=== PATIENT | male | born 1955 | race Caucasian/White ===

== ENCOUNTER 2019-05-07 22:49 | Inpatient (IN) | payer MEDICAID ==
[~2019-05-07] VITALS: Ht 193 cm; Wt 71.2 kg
[2019-05-08] MEDS ORDERED: MORPHINE SULFATE 4 MG/ML CPJ (NOT FOR IM USE) IV STA (00:08)
[2019-05-08] MEDS ORDERED: ONDANSETRON HCL 4MG/2ML INJ IV STA (00:08)
[2019-05-08] MEDS ORDERED: SODIUM CHLORIDE 0.9% 1000ML BAG (SEPSIS BOLUS) IV ONE (00:15)
[2019-05-08] MEDS ORDERED: PIPERACILLIN/TAZ 3.375G PREMIX 50 ML IV ONE (00:15)
[2019-05-08 02:37] LABS: BASOPHILS % 1.5 % (0.0-2.0); EOSINOPHILS % 5.6 % (0.0-5.0); HEMATOCRIT. 31.9 % (42.0-52.0); HEMOGLOBIN. 10.1 g/dL (14.0-18.0); LYMPHOCYTES % 21.6 % (20.0-50.0); MEAN CORPUSCULAR HEMOGLOBIN 23.2 pg (28.0-32.0); MEAN CORPUSCULAR VOLUME 73.3 fL (80.0-94.0); MEAN PLATELET VOLUME 7.7 fl (7.4-10.4); MONOCYTES % 9.4 % (2.0-8.0); NEUTROPHILS % 61.9 % (40.0-76.0); PLATELET 331 x1000/uL (130-400); RED BLOOD CELL COUNT 4.35 mill/uL (4.7-6.1); RED CELL DISTRIBUTION WIDTH 18.3 % (11.6-14.6)
[2019-05-08 02:44] LABS: CHLORIDE 110 mEq/L (98-107); INR 1.1; PROTHROMBIN TIME 11.4 sec (9.6-11.0)
[2019-05-08 02:49] LABS: ETHANOL BLOOD < 10 mg/dL
[2019-05-08] MEDS ORDERED: KETOROLAC 30MG/ML VIAL IV SCH (03:00)
[2019-05-08] MEDS ORDERED: POTASSIUM CHLORIDE 20MEQ TABLET SR PO SCH (03:00)
[2019-05-08 03:39] LABS: CLARITY URINE CLEAR (CLEAR); COLOR URINE YELLOW (YELLOW); KETONES URINE NEGATIVE (NEGATIVE); LEUKOCYTE ESTERASE URINE NEGATIVE (NEGATIVE); NITRITE URINE NEGATIVE (NEGATIVE); OCCULT BLOOD URINE NEGATIVE (NEGATIVE); PH URINE 7.5 (4.5-8.0); PROTEIN URINE NEGATIVE (NEGATIVE); SPECIFIC GRAVITY URINE 1.006 (1.005-1.030); UROBILINOGEN URINE 0.2 E.U./dL (0.2-1.0)
[2019-05-08 04:10] LABS: *AMPHETAMINES SCREEN URINE NEGATIVE (NEGATIVE); *BARBITURATES SCREEN URINE NEGATIVE (NEGATIVE); *BENZODIAZEPINES SCREEN URINE NEGATIVE (NEGATIVE); *COCAINE SCREEN URINE NEGATIVE (NEGATIVE)
[2019-05-08 04:11] LABS: CANNABINOID URINE SCREEN NEGATIVE (NEGATIVE); METHADONE URINE SCREEN NEGATIVE (NEGATIVE); OPIATES URINE SCREEN PRESUMTIVE POSITIVE (NEGATIVE); PHENCYCLIDINE URINE SCREEN NEGATIVE (NEGATIVE)
[2019-05-08] MEDS ORDERED: SODIUM CHLORIDE 0.45% 1,000 ML IV SCH (06:46)
[2019-05-08] MEDS ORDERED: GUAIFENESIN 200MG/10ML SUGAR FREE UDC PO PRN (07:00)
[2019-05-08] MEDS ORDERED: HYDROCODONE/ACETAMINOPHEN 10/325MG TABLET PO PRN (07:00)
[2019-05-08] MEDS ORDERED: DOCUSATE SODIUM 100MG CAPSULE PO PRN (07:00)
[2019-05-08] MEDS ORDERED: ACETAMINOPHEN 325MG TABLET PO PRN (07:00)
[2019-05-08] MEDS ORDERED: NA PHOS,M-B/NA PHOS,DI-BA ENEMA 118ML PR PRN (07:00)
[2019-05-08] MEDS ORDERED: IPRATROPIUM/ALBUTEROL 0.5-3(2.5)MG/3ML NEB INH PRN (07:00)
[2019-05-08] MEDS ORDERED: MAGNESIUM/ALUMINUM HYDROXIDE/SIMETHICONE 30ML UDC PO PRN (07:00)
[2019-05-08] MEDS ORDERED: CLONIDINE 0.1MG TABLET PO PRN (07:00)
[2019-05-08] MEDS ORDERED: ONDANSETRON HCL 4MG/2ML INJ IV PRN (07:00)
[2019-05-08] MEDS ORDERED: HYDRALAZINE 20MG/ML VIAL IV PRN (07:00)
[2019-05-08] MEDS ORDERED: PIPERACILLIN/TAZ 3.375G PREMIX 50 ML IV SCH (10:00)
[2019-05-08] MEDS: HYDROMORPHONE HCL/PF 2MG/ML CPJ IV PRN ×5 (10:03→23:46)
[2019-05-08] MEDS ORDERED: HYDRALAZINE 10 MG in SODIUM CHLORIDE 0.9% 49.5 ML IV PRN (10:45)
[2019-05-08 11:39] VITALS: BP 145/58
[2019-05-08] MEDS: ENOXAPARIN 40MG/0.4ML SYR SUBCUT SCH (12:51)
[2019-05-08] MEDS: ASPIRIN 81MG EC TABLET PO SCH (12:52)
[2019-05-08 13:00] VITALS: BP 145/85
[2019-05-08] MEDS: SODIUM CHLORIDE 0.9% INJ 3ML FLUSH IVF SCH (13:58)
[2019-05-08] MEDS ORDERED: SODIUM BICARBONATE 4% (2.4MEQ) 5ML VIAL IV ONE (14:41)
[2019-05-08] MEDS ORDERED: LIDOCAINE HCL 1% 20ML VIAL (Pyxis) INJ ONE (14:41)
[2019-05-08] MEDS ORDERED: IOHEXOL-300 50 ML BOTTLE IV ONE (15:41)
[2019-05-08 16:00] VITALS: BP 148/66
[2019-05-08] MEDS ORDERED: DIPHENHYDRAMINE 50MG CAPSULE PO NR (17:30)
[2019-05-08] MEDS: DIPHENHYDRAMINE 50MG/ML VIAL IV PRN (17:41)
[2019-05-08] MEDS ORDERED: VANCOMYCIN 1250MG in DEXTROSE 5% WATER 250ML IV NR (18:00)
[2019-05-08 18:59] LABS: CREATINE KINASE 33 IU/L (39-308)
[2019-05-08 19:00] LABS: CREATINE KINASE MB FRACTION < 1.0 ng/mL (0.5-3.6)
[2019-05-08 20:00] VITALS: BP 131/98
[2019-05-08] MEDS: PIPERACILLIN/TAZ 3.375G PREMIX 50 ML IV SCH (20:42)
[2019-05-09] VITALS: BP 117/72
[2019-05-09] MEDS: SODIUM CHLORIDE 0.9% INJ 3ML FLUSH IVF SCH ×4 (00:13→22:00)
[2019-05-09] MEDS ORDERED: DIPHENHYDRAMINE 50MG CAPSULE PO SCH (01:30)
[2019-05-09] MEDS ORDERED: VANCOMYCIN 1 G PREMIX 200 ML IV SCH (02:00)
[2019-05-09] MEDS: DIPHENHYDRAMINE 50MG/ML VIAL IV PRN ×2 (02:11→22:09)
[2019-05-09] MEDS: HYDROMORPHONE HCL/PF 2MG/ML CPJ IV PRN ×7 (03:46→22:06)
[2019-05-09] MEDS: PIPERACILLIN/TAZ 3.375G PREMIX 50 ML IV SCH ×3 (03:58→20:05)
[2019-05-09 04:00] VITALS: BP 122/71
[2019-05-09 08:00] VITALS: BP 162/74
[2019-05-09] MEDS: ASPIRIN 81MG EC TABLET PO SCH (09:00)
[2019-05-09] MEDS: DIPHENHYDRAMINE 50MG CAPSULE PO SCH ×2 (09:30→20:30)
[2019-05-09] MEDS: VANCOMYCIN 1500MG in DEXTROSE 5% WATER 250ML IV SCH ×2 (10:00→22:59)
[2019-05-09 11:58] VITALS: BP 159/73
[2019-05-09] MEDS: ENOXAPARIN 40MG/0.4ML SYR SUBCUT SCH (12:08)
[2019-05-09] MEDS ORDERED: DIPHENHYDRAMINE 50MG/ML VIAL IV PRN (12:45)
[2019-05-09 15:51] VITALS: BP 148/76
[2019-05-09 20:00] VITALS: BP 130/55
[2019-05-10] VITALS: BP 126/57
[2019-05-10 00:08] LABS: EOSINOPHILS % 8.5 % (0.0-5.0); HEMATOCRIT. 34.9 % (42.0-52.0); HEMOGLOBIN. 10.9 g/dL (14.0-18.0); LYMPHOCYTES % 22.7 % (20.0-50.0); MEAN CORPUSCULAR VOLUME 73.5 fL (80.0-94.0); MEAN PLATELET VOLUME 8.4 fl (7.4-10.4); MONOCYTES % 12.2 % (2.0-8.0); NEUTROPHILS % 55.6 % (40.0-76.0); PLATELET 318 x1000/uL (130-400); RED BLOOD CELL COUNT 4.75 mill/uL (4.7-6.1); RED CELL DISTRIBUTION WIDTH 18.1 % (11.6-14.6)
[2019-05-10 00:14] LABS: CHLORIDE 104 mEq/L (98-107)
[2019-05-10] MEDS: LORAZEPAM 2MG/ML CPJ IV PRN ×2 (00:19→14:00)
[2019-05-10 00:23] LABS: CREATINE KINASE 18 IU/L (39-308)
[2019-05-10 00:25] LABS: CREATINE KINASE MB FRACTION < 1.0 ng/mL (0.5-3.6)
[2019-05-10] MEDS: HYDROMORPHONE HCL/PF 2MG/ML CPJ IV PRN ×5 (01:25→15:31)
[2019-05-10 04:00] VITALS: BP 145/74
[2019-05-10] MEDS: DIPHENHYDRAMINE 50MG/ML VIAL IV PRN ×2 (04:53→09:32)
[2019-05-10] MEDS: PIPERACILLIN/TAZ 3.375G PREMIX 50 ML IV SCH ×2 (04:57→12:00)
[2019-05-10] MEDS: SODIUM CHLORIDE 0.9% INJ 3ML FLUSH IVF SCH ×2 (05:03→13:14)
[2019-05-10 08:00] VITALS: BP 142/79
[2019-05-10] MEDS: ASPIRIN 81MG EC TABLET PO SCH (08:09)
[2019-05-10] MEDS: VANCOMYCIN 1500MG in DEXTROSE 5% WATER 250ML IV SCH (08:09)
[2019-05-10] MEDS: DIPHENHYDRAMINE 50MG CAPSULE PO SCH (08:30)
[2019-05-10 08:50] LABS: EOSINOPHILS % 7.1 % (0.0-5.0); HEMOGLOBIN. 10.4 g/dL (14.0-18.0); MEAN CORPUSCULAR HEMOGLOBIN 23.2 pg (28.0-32.0); MEAN CORPUSCULAR VOLUME 73.5 fL (80.0-94.0); NEUTROPHILS % 59.9 % (40.0-76.0); PLATELET 304 x1000/uL (130-400); RED BLOOD CELL COUNT 4.49 mill/uL (4.7-6.1); RED CELL DISTRIBUTION WIDTH 18.3 % (11.6-14.6)
[2019-05-10 09:01] LABS: CHLORIDE 108 mEq/L (98-107)
[2019-05-10] MEDS: ENOXAPARIN 40MG/0.4ML SYR SUBCUT SCH (10:32)
[2019-05-10 12:00] VITALS: BP 143/69
[2019-05-10 15:53] VITALS: BP 132/64
[2019-05-10 16:00] VITALS: BP 132/60
== END 2019-05-10 16:28 | DRG 349 ==
LOC: ER 22:49 → 6EST 05-08 03:34 → EDBEDREQTM 05-08 03:37 → EDBEDREQ 05-08 03:37 → EDBEDREQSVC 05-08 03:37 → ENRESERV 05-08 07:11
PROVIDERS: ADMIT Internal Medicine; ATTEND Internal Medicine
PROC: 05HY33Z Insertion of Infusion Device into Upper Vein, Percutaneous Approach (ICD-10-PCS; principal; 2019-05-08)
PROC: B54NZZA Ultrasonography of Left Upper Extremity Veins, Guidance (ICD-10-PCS; 2019-05-08)
PROC: B51N1ZA Fluoroscopy of Left Upper Extremity Veins using Low Osmolar Contrast, Guidance (ICD-10-PCS; 2019-05-08)
DX: T84.52XA Infection and inflammatory reaction due to internal left hip prosthesis, initial encounter (principal); B19.20 Unspecified viral hepatitis C without hepatic coma; Y83.1 Surgical operation with implant of artificial internal device as the cause of abnormal reaction of the patient, or of later complication, without mention of misadventure at the time of the procedure; Y92.89 Other specified places as the place of occurrence of the external cause; M25.552 Pain in left hip; M25.551 Pain in right hip; B95.62 Methicillin resistant Staphylococcus aureus infection as the cause of diseases classified elsewhere; Z22.322 Carrier or suspected carrier of Methicillin resistant Staphylococcus aureus; Z96.643 Presence of artificial hip joint, bilateral; Z86.14 Personal history of Methicillin resistant Staphylococcus aureus infection; F17.210 Nicotine dependence, cigarettes, uncomplicated; Z76.5 Malingerer [conscious simulation]; Z88.1 Allergy status to other antibiotic agents; T84.51XA Infection and inflammatory reaction due to internal right hip prosthesis, initial encounter
CPT/HCPCS: 36415; 36573; 71045; 72170; 75820; 80048; 80305; 80320; 82550; 82553; 83605; 84145; 84484; 85651; 86140; 96361; 96365; 96375; 97161; 99291; C1725; C1893; J1170; J1200; J1650; J1885; J2060; J2270; J2405; J2543; J3370; J3490; J7030; J7060; Q0163; Q9967; G0480

== ENCOUNTER 2019-06-02 06:28 | Emergency (ER) | payer MEDICAID ==
[~2019-06-02] VITALS: Ht 170.2 cm; Wt 75.0 kg
[2019-06-02] MEDS: HYDROCODONE/ACETAMINOPHEN 5/325MG TABLET PO ONE (06:55)
[2019-06-02] MEDS: KETOROLAC 60MG/2ML VIAL IM ONE (06:55)
[2019-06-02] MEDS: SODIUM CHLORIDE 0.9% 1,000 ML IV ONE (08:14)
[2019-06-02] MEDS: MORPHINE SULFATE 4 MG/ML CPJ (NOT FOR IM USE) IV STA (08:15)
[2019-06-02] MEDS ORDERED: ETOMIDATE 2MG/ML 10ML VIAL IV ONE (08:15)
[2019-06-02] MEDS: ONDANSETRON HCL 4MG/2ML INJ IV STA (08:15)
[2019-06-02 08:42] LABS: HEMATOCRIT. 32.6 % (42.0-52.0); HEMOGLOBIN. 10.2 g/dL (14.0-18.0); MEAN CORPUSCULAR VOLUME 73.3 fL (80.0-94.0); MEAN PLATELET VOLUME 8.4 fl (7.4-10.4); PLATELET 200 x1000/uL (130-400); RED BLOOD CELL COUNT 4.45 mill/uL (4.7-6.1); RED CELL DISTRIBUTION WIDTH 18.7 % (11.6-14.6)
[2019-06-02 08:43] LABS: CHLORIDE 104 mEq/L (98-107)
[2019-06-02 08:45] LABS: INR 1.1; PARTIAL THROMBOPLASTIN TIME 28.3 sec (23.4-31.0); PROTHROMBIN TIME 11.4 sec (9.6-11.0)
[2019-06-02 08:46] LABS: ETHANOL BLOOD < 10 mg/dL
[2019-06-02 08:59] LABS: PLATELET ESTIMATE NORMAL
[2019-06-02] MEDS ORDERED: FENTANYL CITRATE/PF 50MCG/ML 2ML VIAL IV ONE (10:30)
[2019-06-02 10:59] VITALS: BP 135/83
== END 2019-06-02 11:35 | disposition short-term general hospital (02) ==
LOC: ER 06:28 → CANBEDREQ 09:04 → ER 11:35
DX: S73.004A Unspecified dislocation of right hip, initial encounter (principal); F12.10 Cannabis abuse, uncomplicated; K75.9 Inflammatory liver disease, unspecified; G89.29 Other chronic pain; Z96.649 Presence of unspecified artificial hip joint; Z79.899 Other long term (current) drug therapy; X58.XXXA Exposure to other specified factors, initial encounter; Y93.89 Activity, other specified; Y92.89 Other specified places as the place of occurrence of the external cause; Y99.8 Other external cause status
CPT/HCPCS: 27250; 36415; 71045; 72192; 80053; 80320; 85025; 85610; 85730; 93005; 96372; 96374; 96375; 99152; 99285; J1885; J2270; J2405; J3010; J3490; J7030; G0480

== ENCOUNTER 2019-08-06 18:04 | Emergency (ER) | payer MEDICAID ==
[~2019-08-06] VITALS: Ht 190.5 cm; Wt 80.0 kg
[2019-08-06] MEDS ORDERED: HYDROCODONE/ACETAMINOPHEN 10/325MG TABLET PO ONE (19:30)
[2019-08-06] MEDS ORDERED: MORPHINE SULFATE 4 MG/ML CPJ (NOT FOR IM USE) IV ONE ×4 (19:45→21:15)
[2019-08-07 05:29] VITALS: BP 139/74
[2019-09-06] MEDS ORDERED: DOXY150T MT (17:53)
[2019-09-06] MEDS ORDERED: LORA0.5T2 MT (17:53)
[2019-09-08] MEDS ORDERED: ASPI-1158 PO (14:26)
[2019-09-08] MEDS ORDERED: FERR325T23 PO (14:26)
== END 2019-08-07 05:31 | disposition home or self-care (01) ==
LOC: ER 18:04
DX: M79.605 Pain in left leg (principal); M79.604 Pain in right leg; W05.0XXA Fall from non-moving wheelchair, initial encounter; Y93.89 Activity, other specified; Y92.89 Other specified places as the place of occurrence of the external cause; Z98.890 Other specified postprocedural states
CPT/HCPCS: 73521; 73552; 96374; 96376; 99283; J2270

== ENCOUNTER 2019-08-07 07:10 | Emergency (ER) | payer MEDICAID ==
[~2019-08-07] VITALS: Ht 190.5 cm; Wt 80.0 kg
[2019-08-07] MEDS ORDERED: MORPHINE SULFATE 4 MG/ML CPJ (NOT FOR IM USE) IV STA (07:14)
[2019-08-07] MEDS ORDERED: ONDANSETRON HCL 4MG/2ML INJ IV STA (07:14)
[2019-08-07 09:12] LABS: INR 1.1; PROTHROMBIN TIME 11.4 sec (9.6-11.0)
[2019-08-07 09:46] LABS: BASOPHILS % 0.6 % (0.0-2.0); EOSINOPHILS % 1.4 % (0.0-5.0); HEMATOCRIT. 44.1 % (42.0-52.0); HEMOGLOBIN. 13.9 g/dL (14.0-18.0); LYMPHOCYTES % 19.5 % (20.0-50.0); MEAN CORPUSCULAR HEMOGLOBIN 23.4 pg (28.0-32.0); MONOCYTES % 9.1 % (2.0-8.0); NEUTROPHILS % 69.4 % (40.0-76.0); PLATELET 268 x1000/uL (130-400); RED BLOOD CELL COUNT 5.96 mill/uL (4.7-6.1); RED CELL DISTRIBUTION WIDTH 20.6 % (11.6-14.6)
[2019-08-07 11:43] VITALS: BP 144/88
[2019-08-07] MEDS ORDERED: OXYCODONE HCL/ACETAMINOPHEN 5/325MG TABLET PO ONE (11:45)
[2019-09-06] MEDS ORDERED: LORA0.5T2 MT (17:53)
[2019-09-06] MEDS ORDERED: DOXY150T MT (17:53)
[2019-09-08] MEDS ORDERED: FERR325T23 PO (14:26)
[2019-09-08] MEDS ORDERED: ASPI-1158 PO (14:26)
== END 2019-08-07 11:53 | disposition short-term general hospital (02) ==
LOC: ER 07:10 → CANBEDREQ 10:50 → ER 11:53
DX: M25.551 Pain in right hip (principal); M25.552 Pain in left hip; W05.0XXA Fall from non-moving wheelchair, initial encounter; Y93.89 Activity, other specified; Y92.89 Other specified places as the place of occurrence of the external cause
CPT/HCPCS: 36415; 85025; 85610; 96374; 96375; 99285; J2270; J2405; Z7610

== ENCOUNTER 2019-08-19 03:13 | Emergency (ER) | payer MEDICAID, OTHER ==
[~2019-08-19] VITALS: Ht 170.2 cm; Wt 69.0 kg
[2019-08-19] MEDS ORDERED: IBUPROFEN 600MG TABLET PO STA (06:27)
[2019-08-19 08:54] VITALS: BP 125/80
[2019-09-06] MEDS ORDERED: DOXY150T MT (17:53)
[2019-09-06] MEDS ORDERED: LORA0.5T2 MT (17:53)
[2019-09-08] MEDS ORDERED: FERR325T23 PO (14:26)
[2019-09-08] MEDS ORDERED: ASPI-1158 PO (14:26)
== END 2019-08-19 09:00 | disposition home or self-care (01) ==
LOC: ER 03:13
DX: M79.605 Pain in left leg (principal); M79.604 Pain in right leg
CPT/HCPCS: 99283; Z7610

== ENCOUNTER 2019-09-08 22:09 | Emergency (ER) | payer OTHER ==
[~2019-09-08] VITALS: Ht 177.8 cm; Wt 79.0 kg
[~2019-09-08 22:09] MED LIST: ASPI-1158 PO; DOXY150T MT; FERR325T23 PO; LORA0.5T2 MT
[2019-09-08] MEDS ORDERED: KETOROLAC 60MG/2ML VIAL IM ONE (22:30)
[2019-09-08] MEDS ORDERED: HYDROCODONE/ACETAMINOPHEN 10/325MG TABLET PO ONE (23:15)
[2019-09-08 23:22] VITALS: BP 132/57
== END 2019-09-09 00:52 | disposition home or self-care (01) ==
LOC: ER 22:23
DX: M25.551 Pain in right hip (principal); G89.29 Other chronic pain; Z91.81 History of falling
CPT/HCPCS: 72170; 99283

== ENCOUNTER 2019-09-09 04:59 | Emergency (ER) | payer OTHER ==
[~2019-09-09] VITALS: Ht 172.7 cm; Wt 78.0 kg
[2019-09-09] MEDS ORDERED: ACETAMINOPHEN 325MG TABLET PO ONE (05:45)
[2019-09-09] MEDS ORDERED: MORPHINE SULFATE 2 MG/ML CPJ (NOT FOR IM USE) IV ONE (07:00)
[2019-09-09 11:28] VITALS: BP 132/78
== END 2019-09-09 11:29 | disposition home or self-care (01) ==
LOC: ER 05:16
DX: S09.8XXA Other specified injuries of head, initial encounter (principal); M25.551 Pain in right hip; W01.0XXA Fall on same level from slipping, tripping and stumbling without subsequent striking against object, initial encounter; Y93.89 Activity, other specified; Y92.89 Other specified places as the place of occurrence of the external cause; Y99.8 Other external cause status; Z96.649 Presence of unspecified artificial hip joint; Z79.899 Other long term (current) drug therapy; R55 Syncope and collapse
CPT/HCPCS: 70450; 72192; 96374; 99284; J2270

== ENCOUNTER 2019-10-22 11:45 | Emergency (ER) | payer OTHER ==
[~2019-10-22] VITALS: Ht 185.4 cm; Wt 86.0 kg
[2019-10-22] MEDS ORDERED: LORAZEPAM 1MG TABLET PO ONE (14:00)
[2019-10-22 14:59] LABS: BASOPHILS % 0.7 % (0.0-2.0); EOSINOPHILS % 2.2 % (0.0-5.0); HEMATOCRIT. 35.1 % (42.0-52.0); HEMOGLOBIN. 11.4 g/dL (14.0-18.0); LYMPHOCYTES % 13.3 % (20.0-50.0); MEAN CORPUSCULAR HEMOGLOBIN 25.3 pg (28.0-32.0); MEAN CORPUSCULAR VOLUME 77.5 fL (80.0-94.0); MEAN PLATELET VOLUME 8.9 fl (7.4-10.4); MONOCYTES % 8.7 % (2.0-8.0); NEUTROPHILS % 75.1 % (40.0-76.0); PLATELET 244 x1000/uL (130-400); RED BLOOD CELL COUNT 4.53 mill/uL (4.7-6.1); RED CELL DISTRIBUTION WIDTH 20.7 % (11.6-14.6)
[2019-10-22 15:06] LABS: CHLORIDE 106 mEq/L (98-107)
[2019-10-22 15:09] LABS: ETHANOL BLOOD < 10 mg/dL
[2019-10-22 15:48] LABS: *AMPHETAMINES SCREEN URINE PRESUMTIVE POSITIVE (NEGATIVE); *BARBITURATES SCREEN URINE NEGATIVE (NEGATIVE); *COCAINE SCREEN URINE NEGATIVE (NEGATIVE)
[2019-10-22 15:49] LABS: *BENZODIAZEPINES SCREEN URINE NEGATIVE (NEGATIVE); CANNABINOID URINE SCREEN NEGATIVE (NEGATIVE); METHADONE URINE SCREEN NEGATIVE (NEGATIVE); OPIATES URINE SCREEN PRESUMTIVE POSITIVE (NEGATIVE); PHENCYCLIDINE URINE SCREEN NEGATIVE (NEGATIVE)
[2019-10-22 23:03] VITALS: BP 111/70
== END 2019-10-22 23:50 | disposition home or self-care (01) ==
LOC: ER 11:56
DX: R07.9 Chest pain, unspecified (principal); T43.621A Poisoning by amphetamines, accidental (unintentional), initial encounter; Y92.89 Other specified places as the place of occurrence of the external cause
CPT/HCPCS: 36415; 71045; 80305; 80320; 83880; 84484; 93005; 99284; G0480

== ENCOUNTER 2019-11-18 01:10 | Emergency (ER) | payer MEDICAID, OTHER ==
[~2019-11-18] VITALS: Ht 190.5 cm; Wt 74.0 kg
[~2019-11-18 01:10] MED LIST changes: -DOXY150T MT; +DOXY150T5 MT
[2019-11-18 01:22] VITALS: BP 146/63
== END 2019-11-18 02:50 | disposition left against medical advice (07) ==
LOC: ER 01:28
DX: Z53.21 Procedure and treatment not carried out due to patient leaving prior to being seen by health care provider (principal)

== ENCOUNTER 2019-11-18 06:11 | Emergency (ER) | payer MEDICAID ==
[~2019-11-18] VITALS: Ht 190.5 cm; Wt 75.0 kg
[2019-11-18] MEDS ORDERED: KETOROLAC 30MG/ML VIAL IV ONE (08:15)
[2019-11-18] MEDS ORDERED: ACETAMINOPHEN 325MG TABLET PO ONE (08:15)
[2019-11-18] MEDS ORDERED: KETOROLAC 30MG/ML VIAL IM ONE (08:30)
[2019-11-18 08:53] LABS: BASOPHILS % 1.3 % (0.0-2.0); EOSINOPHILS % 4.2 % (0.0-5.0); HEMATOCRIT. 40.7 % (42.0-52.0); LYMPHOCYTES % 19.9 % (20.0-50.0); MEAN CORPUSCULAR HEMOGLOBIN 25.5 pg (28.0-32.0); MEAN CORPUSCULAR VOLUME 79.8 fL (80.0-94.0); MEAN PLATELET VOLUME 9.1 fl (7.4-10.4); NEUTROPHILS % 61.6 % (40.0-76.0); PLATELET 224 x1000/uL (130-400); RED CELL DISTRIBUTION WIDTH 18.2 % (11.6-14.6)
[2019-11-18 09:09] LABS: CHLORIDE 112 mEq/L (98-107)
[2019-11-18 09:18] VITALS: BP 137/71
== END 2019-11-18 09:48 | disposition left against medical advice (07) ==
LOC: ER 06:11
DX: M79.18 Myalgia, other site (principal); R03.0 Elevated blood-pressure reading, without diagnosis of hypertension
CPT/HCPCS: 36415; 80053; 85025; 99283

== ENCOUNTER 2019-11-23 00:38 | Emergency (ER) | payer MEDICAID ==
[~2019-11-23] VITALS: Ht 188 cm; Wt 77.0 kg
[2019-11-23] MEDS ORDERED: IBUPROFEN 200MG TABLET PO ONE (04:00)
[2019-11-23 05:00] VITALS: BP 115/54
== END 2019-11-23 08:41 | disposition home or self-care (01) ==
LOC: ER 00:38
DX: M25.551 Pain in right hip (principal); G89.29 Other chronic pain; Z91.81 History of falling; Z96.641 Presence of right artificial hip joint
CPT/HCPCS: 73502; 99283

== ENCOUNTER 2020-01-04 21:17 | Emergency (ER) | payer MEDICAID ==
[~2020-01-04] VITALS: Ht 177.8 cm; Wt 72.0 kg
[2020-01-04 22:44] VITALS: BP 112/59
[2020-01-04] MEDS ORDERED: IBUPROFEN 600MG TABLET PO ONE (22:45)
[2020-01-04] MEDS ORDERED: HYDROCODONE/ACETAMINOPHEN 5/325MG TABLET PO ONE (22:45)
== END 2020-01-04 22:54 | disposition home or self-care (01) ==
LOC: ER 21:17
DX: G89.29 Other chronic pain (principal); M25.551 Pain in right hip; R07.89 Other chest pain; Z96.649 Presence of unspecified artificial hip joint; Z87.891 Personal history of nicotine dependence; Z88.1 Allergy status to other antibiotic agents; Z79.82 Long term (current) use of aspirin; Z79.899 Other long term (current) drug therapy
CPT/HCPCS: 99283

== ENCOUNTER 2020-01-04 23:18 | Emergency (ER) | payer MEDICAID ==
[~2020-01-04] VITALS: Ht 177.8 cm; Wt 72.0 kg
[2020-01-04 23:25] VITALS: BP 107/71
== END 2020-01-05 01:14 | disposition home or self-care (01) ==
LOC: ER 23:18
DX: R45.6 Violent behavior (principal); R07.89 Other chest pain; Z96.649 Presence of unspecified artificial hip joint; Z88.1 Allergy status to other antibiotic agents; Z79.899 Other long term (current) drug therapy
CPT/HCPCS: 99283

== ENCOUNTER 2020-01-05 00:20 | Emergency (ER) | payer MEDICAID ==
[~2020-01-05] VITALS: Ht 190.5 cm; Wt 78.0 kg
[2020-01-05 03:00] VITALS: BP 123/72
== END 2020-01-05 06:48 | disposition home or self-care (01) ==
LOC: ER 00:20
DX: G89.29 Other chronic pain (principal); R07.89 Other chest pain; Z98.890 Other specified postprocedural states; Z86.19 Personal history of other infectious and parasitic diseases; Z96.649 Presence of unspecified artificial hip joint; Z88.1 Allergy status to other antibiotic agents; Z79.899 Other long term (current) drug therapy; Z79.82 Long term (current) use of aspirin
CPT/HCPCS: 93005; 99283

== ENCOUNTER 2020-03-11 21:24 | Emergency (ER) | payer MEDICAID ==
[~2020-03-11] VITALS: Ht 170.2 cm; Wt 78.0 kg
[2020-03-11] MEDS ORDERED: IBUPROFEN 600MG TABLET PO STA (21:37)
[2020-03-11] MEDS ORDERED: SODIUM CHLORIDE 0.9% 1,000 ML IV ONE (21:45)
[2020-03-11 23:10] LABS: *BARBITURATES SCREEN URINE NEGATIVE (NEGATIVE)
[2020-03-11 23:11] LABS: *AMPHETAMINES SCREEN URINE NEGATIVE (NEGATIVE); *BENZODIAZEPINES SCREEN URINE NEGATIVE (NEGATIVE); *COCAINE SCREEN URINE NEGATIVE (NEGATIVE); CANNABINOID URINE SCREEN NEGATIVE (NEGATIVE); METHADONE URINE SCREEN NEGATIVE (NEGATIVE); OPIATES URINE SCREEN PRESUMTIVE POSITIVE (NEGATIVE); PHENCYCLIDINE URINE SCREEN NEGATIVE (NEGATIVE)
[2020-03-11 23:59] VITALS: BP 105/78
== END 2020-03-11 23:48 | disposition left against medical advice (07) ==
LOC: ER 21:24
DX: R07.89 Other chest pain (principal); F17.210 Nicotine dependence, cigarettes, uncomplicated; Z71.6 Tobacco abuse counseling; F10.129 Alcohol abuse with intoxication, unspecified; Y90.9 Presence of alcohol in blood, level not specified; Z88.1 Allergy status to other antibiotic agents
CPT/HCPCS: 71045; 80305; 93005; 99285; 99406; J7030

== ENCOUNTER 2020-06-16 18:32 | Emergency (ER) | payer MEDICAID, OTHER ==
[~2020-06-16] VITALS: Ht 170.2 cm; Wt 79.0 kg
[2020-06-16] MEDS ORDERED: SODIUM CHLORIDE 0.9% 1,000 ML IV ONE (19:13)
[2020-06-16 20:33] LABS: CLARITY URINE CLOUDY (CLEAR); COLOR URINE YELLOW (YELLOW); KETONES URINE NEGATIVE (NEGATIVE); LEUKOCYTE ESTERASE URINE 1+ (NEGATIVE); NITRITE URINE POSITIVE (NEGATIVE); OCCULT BLOOD URINE NEGATIVE (NEGATIVE); PROTEIN URINE TRACE (NEGATIVE); SPECIFIC GRAVITY URINE 1.013 (1.005-1.030); UROBILINOGEN URINE 0.2 E.U./dL (0.2-1.0)
[2020-06-16 20:43] LABS: HEMATOCRIT. 32.8 % (42.0-52.0); HEMOGLOBIN. 10.6 g/dL (14.0-18.0); MEAN CORPUSCULAR HEMOGLOBIN 23.1 pg (28.0-32.0); MEAN CORPUSCULAR VOLUME 71.3 fL (80.0-94.0); MEAN PLATELET VOLUME 8.4 fl (7.4-10.4); PLATELET 366 x1000/uL (130-400); RED CELL DISTRIBUTION WIDTH 21.8 % (11.6-14.6)
[2020-06-16 20:47] LABS: CHLORIDE 111 mEq/L (98-107)
[2020-06-16 20:49] LABS: INR 1.1; PROTHROMBIN TIME 11.4 sec (9.6-11.0)
[2020-06-16] MEDS ORDERED: ACETAMINOPHEN WITH CODEINE 300/30MG TABLET PO NR (22:00)
[2020-06-16 23:28] LABS: PLATELET ESTIMATE NORMAL
[2020-06-17 00:15] VITALS: BP 139/87
[2020-06-17 00:22] LABS: ETHANOL BLOOD < 10 mg/dL
[2020-06-17 04:32] LABS: *BARBITURATES SCREEN URINE NEGATIVE (NEGATIVE)
[2020-06-17 04:34] LABS: *AMPHETAMINES SCREEN URINE PRESUMTIVE POSITIVE (NEGATIVE); *BENZODIAZEPINES SCREEN URINE NEGATIVE (NEGATIVE); *COCAINE SCREEN URINE PRESUMTIVE POSITIVE (NEGATIVE); CANNABINOID URINE SCREEN PRESUMTIVE POSITIVE (NEGATIVE); METHADONE URINE SCREEN NEGATIVE (NEGATIVE); OPIATES URINE SCREEN NEGATIVE (NEGATIVE); PHENCYCLIDINE URINE SCREEN NEGATIVE (NEGATIVE)
== END 2020-06-17 09:59 | disposition home or self-care (01) ==
LOC: ER 18:32
DX: M25.551 Pain in right hip (principal); G89.29 Other chronic pain; R53.1 Weakness; R06.02 Shortness of breath; I10 Essential (primary) hypertension; E87.6 Hypokalemia; D64.9 Anemia, unspecified; D72.829 Elevated white blood cell count, unspecified; Z96.643 Presence of artificial hip joint, bilateral; Z88.3 Allergy status to other anti-infective agents; Z79.899 Other long term (current) drug therapy
CPT/HCPCS: 36415; 71045; 72170; 80053; 80305; 80307; 80320; 80329; 81003; 83880; 84484; 85025; 85610; 87077; 87086; 87186; 99284; J7030; G0480

== ENCOUNTER 2020-06-17 12:45 | Inpatient (IN) | payer MEDICAID ==
[~2020-06-17] VITALS: Ht 188 cm; Wt 72.1 kg
[2020-06-17] MEDS ORDERED: ONDANSETRON HCL 4MG/2ML INJ IV STA (12:58)
[2020-06-17] MEDS ORDERED: MORPHINE SULFATE 4 MG/ML CPJ (NOT FOR IM USE) IV STA (12:58)
[2020-06-17] MEDS ORDERED: SODIUM CHLORIDE 0.9% 1,000 ML IV ONE (12:58)
[2020-06-17] MEDS ORDERED: NITROGLYCERIN 0.4MG TABLET SL SL PRN (13:00)
[2020-06-17] MEDS ORDERED: ASPIRIN 81MG TABLET PO ONE (13:00)
[2020-06-17] MEDS ORDERED: LIDOCAINE HCL 1% 20ML VIAL (Pyxis) INJ ONE (13:37)
[2020-06-17] MEDS ORDERED: SODIUM BICARBONATE 4% (2.4MEQ) 5ML VIAL IV ONE (13:37)
[2020-06-17 14:14] LABS: CLARITY URINE CLOUDY (CLEAR); COLOR URINE YELLOW (YELLOW); KETONES URINE NEGATIVE (NEGATIVE); LEUKOCYTE ESTERASE URINE 2+ (NEGATIVE); NITRITE URINE POSITIVE (NEGATIVE); OCCULT BLOOD URINE NEGATIVE (NEGATIVE); PH URINE 6.5 (4.5-8.0); PROTEIN URINE TRACE (NEGATIVE); SPECIFIC GRAVITY URINE 1.013 (1.005-1.030)
[2020-06-17 16:13] LABS: EOSINOPHILS % 0.7 % (0.0-5.0); HEMATOCRIT. 29.2 % (42.0-52.0); HEMOGLOBIN. 9.1 g/dL (14.0-18.0); LYMPHOCYTES % 8.7 % (20.0-50.0); MEAN CORPUSCULAR HEMOGLOBIN 22.8 pg (28.0-32.0); MEAN CORPUSCULAR VOLUME 73.2 fL (80.0-94.0); MEAN PLATELET VOLUME 8.6 fl (7.4-10.4); MONOCYTES % 8.8 % (2.0-8.0); NEUTROPHILS % 80.8 % (40.0-76.0); PLATELET 275 x1000/uL (130-400); RED BLOOD CELL COUNT 3.99 mill/uL (4.7-6.1); RED CELL DISTRIBUTION WIDTH 21.8 % (11.6-14.6)
[2020-06-17 16:15] LABS: CHLORIDE 111 mEq/L (98-107)
[2020-06-17 16:19] LABS: D-DIMER 0.8 mg/L FEU (<0.50); INR 1.2; PARTIAL THROMBOPLASTIN TIME 28.8 sec (23.4-31.0); PROTHROMBIN TIME 12.1 sec (9.6-11.0)
[2020-06-17] MEDS ORDERED: CEFTRIAXONE 1 G PREMIX 50 ML IV ONE (19:30)
[2020-06-17] MEDS ORDERED: ONDANSETRON HCL 4MG/2ML INJ IV PRN (20:15)
[2020-06-17] MEDS ORDERED: CLONIDINE 0.1MG TABLET PO PRN (20:15)
[2020-06-17] MEDS ORDERED: IPRATROPIUM/ALBUTEROL 0.5-3(2.5)MG/3ML NEB HHN PRN (20:15)
[2020-06-17] MEDS ORDERED: ACETAMINOPHEN 325MG TABLET PO PRN (20:15)
[2020-06-17 20:36] LABS: PHOSPHORUS 2.4 mg/dL (2.5-4.9)
[2020-06-17 22:12] VITALS: BP 109/43
[2020-06-17] MEDS: MORPHINE SULFATE 2 MG/ML CPJ (NOT FOR IM USE) IV PRN (22:30)
[2020-06-17] MEDS: ENOXAPARIN 40MG/0.4ML SYR SUBCUT SCH (22:32)
[2020-06-17 23:07] VITALS: BP 109/43
[2020-06-18] VITALS: BP 108/56
[2020-06-18 04:00] VITALS: BP 102/62
[2020-06-18] MEDS: MORPHINE SULFATE 2 MG/ML CPJ (NOT FOR IM USE) IV PRN ×4 (06:04→21:22)
[2020-06-18 06:18] LABS: CHLORIDE 111 mEq/L (98-107)
[2020-06-18 06:20] LABS: BASOPHILS % 0.4 % (0.0-2.0); EOSINOPHILS % 1.3 % (0.0-5.0); HEMOGLOBIN. 8.7 g/dL (14.0-18.0); LYMPHOCYTES % 13.7 % (20.0-50.0); MEAN CORPUSCULAR HEMOGLOBIN 23.2 pg (28.0-32.0); MEAN PLATELET VOLUME 8.8 fl (7.4-10.4); MONOCYTES % 10.6 % (2.0-8.0); PLATELET 248 x1000/uL (130-400); RED BLOOD CELL COUNT 3.75 mill/uL (4.7-6.1); RED CELL DISTRIBUTION WIDTH 21.2 % (11.6-14.6)
[2020-06-18 06:29] LABS: LDL CHOLESTEROL 60 mg/dL (5-100)
[2020-06-18 06:31] LABS: HDL CHOLESTEROL 24 mg/dL (40-59)
[2020-06-18 08:09] VITALS: BP 103/55
[2020-06-18] MEDS: MAGNESIUM GLUCONATE 500MG TABLET PO SCH (10:00)
[2020-06-18 12:00] VITALS: BP 109/58
[2020-06-18 13:40] LABS: TOTAL IRON BINDING CAPACITY 272 ug/dL (250-450)
[2020-06-18 15:22] LABS: *AMPHETAMINES SCREEN URINE NEGATIVE (NEGATIVE); *BARBITURATES SCREEN URINE NEGATIVE (NEGATIVE); *BENZODIAZEPINES SCREEN URINE NEGATIVE (NEGATIVE)
[2020-06-18 15:23] LABS: *COCAINE SCREEN URINE PRESUMTIVE POSITIVE (NEGATIVE); CANNABINOID URINE SCREEN NEGATIVE (NEGATIVE); METHADONE URINE SCREEN NEGATIVE (NEGATIVE); OPIATES URINE SCREEN PRESUMTIVE POSITIVE (NEGATIVE); PHENCYCLIDINE URINE SCREEN NEGATIVE (NEGATIVE)
[2020-06-18 16:00] VITALS: BP 122/65
[2020-06-18] MEDS ORDERED: CEFTRIAXONE 1,000 MG in DEXTROSE 5% WATER 50 ML IV SCH ×2 (19:00→22:00)
[2020-06-18 20:00] VITALS: BP 112/62
[2020-06-18] MEDS: ENOXAPARIN 40MG/0.4ML SYR SUBCUT SCH (21:21)
[2020-06-18] MEDS: DIPHENHYDRAMINE 50MG/ML VIAL IV PRN (23:15)
[2020-06-19] VITALS: BP 106/60
[2020-06-19 04:00] VITALS: BP 128/74
[2020-06-19] MEDS: MORPHINE SULFATE 2 MG/ML CPJ (NOT FOR IM USE) IV PRN ×4 (05:07→20:23)
[2020-06-19 07:44] LABS: BASOPHILS % 0.6 % (0.0-2.0); EOSINOPHILS % 3.1 % (0.0-5.0); HEMATOCRIT. 29.7 % (42.0-52.0); HEMOGLOBIN. 9.3 g/dL (14.0-18.0); LYMPHOCYTES % 14.8 % (20.0-50.0); MEAN CORPUSCULAR HEMOGLOBIN 22.7 pg (28.0-32.0); MEAN CORPUSCULAR VOLUME 72.7 fL (80.0-94.0); MEAN PLATELET VOLUME 8.5 fl (7.4-10.4); MONOCYTES % 8.6 % (2.0-8.0); NEUTROPHILS % 72.9 % (40.0-76.0); PLATELET 288 x1000/uL (130-400); RED BLOOD CELL COUNT 4.09 mill/uL (4.7-6.1); RED CELL DISTRIBUTION WIDTH 21.6 % (11.6-14.6)
[2020-06-19 07:53] LABS: CHLORIDE 109 mEq/L (98-107)
[2020-06-19 08:00] VITALS: BP 110/63
[2020-06-19] MEDS: MAGNESIUM GLUCONATE 500MG TABLET PO SCH (09:05)
[2020-06-19 12:00] VITALS: BP 111/64
[2020-06-19] MEDS: ASPIRIN 81MG TABLET PO SCH (12:39)
[2020-06-19] MEDS: CEFEPIME 1,000 MG in DEXTROSE 5% WATER 50 ML IV SCH ×2 (14:10→22:01)
[2020-06-19 16:00] VITALS: BP 114/75
[2020-06-19 20:00] VITALS: BP 110/68
[2020-06-19] MEDS: ATORVASTATIN CALCIUM 20MG TABLET PO SCH ×2 (20:21→20:26)
[2020-06-19] MEDS: ENOXAPARIN 40MG/0.4ML SYR SUBCUT SCH (20:22)
[2020-06-19] MEDS: DIPHENHYDRAMINE 50MG/ML VIAL IV PRN (22:34)
[2020-06-20] MEDS: MORPHINE SULFATE 2 MG/ML CPJ (NOT FOR IM USE) IV PRN ×5 (02:03→21:25)
[2020-06-20] MEDS: DIPHENHYDRAMINE 50MG/ML VIAL IV PRN ×4 (02:48→23:17)
[2020-06-20 08:00] VITALS: BP 103/65
[2020-06-20] MEDS: ASPIRIN 81MG TABLET PO SCH (08:55)
[2020-06-20] MEDS: CEFEPIME 1,000 MG in DEXTROSE 5% WATER 50 ML IV SCH (08:55)
[2020-06-20] MEDS: MAGNESIUM GLUCONATE 500MG TABLET PO SCH (08:55)
[2020-06-20 12:05] VITALS: BP 118/69
[2020-06-20] MEDS: MEROPENEM 1,000 MG in SODIUM CHLORIDE 0.9% 100 ML IV SCH ×2 (13:59→21:24)
[2020-06-20 16:00] VITALS: BP 106/70
[2020-06-20 16:06] LABS: BASOPHILS % 0.7 % (0.0-2.0); EOSINOPHILS % 4.5 % (0.0-5.0); HEMATOCRIT. 32.3 % (42.0-52.0); HEMOGLOBIN. 10.2 g/dL (14.0-18.0); LYMPHOCYTES % 17.1 % (20.0-50.0); MEAN CORPUSCULAR HEMOGLOBIN 22.6 pg (28.0-32.0); MEAN CORPUSCULAR VOLUME 71.7 fL (80.0-94.0); MEAN PLATELET VOLUME 8.7 fl (7.4-10.4); MONOCYTES % 9.3 % (2.0-8.0); NEUTROPHILS % 68.4 % (40.0-76.0); PLATELET 330 x1000/uL (130-400); RED CELL DISTRIBUTION WIDTH 21.2 % (11.6-14.6)
[2020-06-20 16:22] LABS: CHLORIDE 106 mEq/L (98-107)
[2020-06-20 20:00] VITALS: BP 112/71
[2020-06-20] MEDS: ATORVASTATIN CALCIUM 20MG TABLET PO SCH ×2 (21:00→21:24)
[2020-06-20] MEDS: ENOXAPARIN 40MG/0.4ML SYR SUBCUT SCH (21:24)
[2020-06-21] VITALS: BP 114/68
[2020-06-21] MEDS: MORPHINE SULFATE 2 MG/ML CPJ (NOT FOR IM USE) IV PRN ×5 (02:32→22:48)
[2020-06-21] MEDS: MEROPENEM 1,000 MG in SODIUM CHLORIDE 0.9% 100 ML IV SCH ×3 (06:18→22:26)
[2020-06-21 08:00] VITALS: BP 113/74
[2020-06-21] MEDS: MAGNESIUM GLUCONATE 500MG TABLET PO SCH (08:15)
[2020-06-21] MEDS: ASPIRIN 81MG TABLET PO SCH (08:15)
[2020-06-21 08:36] LABS: BASOPHILS % 1.3 % (0.0-2.0); EOSINOPHILS % 4.1 % (0.0-5.0); HEMATOCRIT. 33.2 % (42.0-52.0); HEMOGLOBIN. 10.5 g/dL (14.0-18.0); LYMPHOCYTES % 20.3 % (20.0-50.0); MEAN CORPUSCULAR HEMOGLOBIN 22.6 pg (28.0-32.0); MEAN CORPUSCULAR VOLUME 71.8 fL (80.0-94.0); MEAN PLATELET VOLUME 8.3 fl (7.4-10.4); NEUTROPHILS % 62.3 % (40.0-76.0); PLATELET 358 x1000/uL (130-400); RED BLOOD CELL COUNT 4.63 mill/uL (4.7-6.1); RED CELL DISTRIBUTION WIDTH 20.8 % (11.6-14.6)
[2020-06-21 08:45] LABS: CHLORIDE 104 mEq/L (98-107)
[2020-06-21] MEDS: DIPHENHYDRAMINE 50MG/ML VIAL IV PRN ×3 (11:28→20:53)
[2020-06-21 12:06] VITALS: BP 116/73
[2020-06-21 16:05] VITALS: BP 117/67
[2020-06-21 20:00] VITALS: BP 117/66
[2020-06-21] MEDS: ATORVASTATIN CALCIUM 20MG TABLET PO SCH (20:43)
[2020-06-21] MEDS: ENOXAPARIN 40MG/0.4ML SYR SUBCUT SCH (20:44)
[2020-06-22] VITALS: BP 106/66
[2020-06-22] MEDS: DIPHENHYDRAMINE 50MG/ML VIAL IV PRN ×5 (01:06→22:49)
[2020-06-22] MEDS: MORPHINE SULFATE 2 MG/ML CPJ (NOT FOR IM USE) IV PRN ×4 (03:13→17:32)
[2020-06-22 04:00] VITALS: BP 113/69
[2020-06-22] MEDS: MEROPENEM 1,000 MG in SODIUM CHLORIDE 0.9% 100 ML IV SCH ×3 (05:37→21:11)
[2020-06-22 08:00] VITALS: BP 108/68
[2020-06-22] MEDS: ASPIRIN 81MG TABLET PO SCH (08:09)
[2020-06-22] MEDS: MAGNESIUM GLUCONATE 500MG TABLET PO SCH (08:09)
[2020-06-22 12:00] VITALS: BP 110/83
[2020-06-22 12:03] LABS: BASOPHILS % 1.3 % (0.0-2.0); EOSINOPHILS % 3.8 % (0.0-5.0); HEMATOCRIT. 31.9 % (42.0-52.0); LYMPHOCYTES % 17.6 % (20.0-50.0); MEAN CORPUSCULAR HEMOGLOBIN 22.5 pg (28.0-32.0); MEAN CORPUSCULAR VOLUME 71.8 fL (80.0-94.0); MEAN PLATELET VOLUME 8.8 fl (7.4-10.4); MONOCYTES % 10.4 % (2.0-8.0); NEUTROPHILS % 66.9 % (40.0-76.0); PLATELET 317 x1000/uL (130-400); RED BLOOD CELL COUNT 4.44 mill/uL (4.7-6.1); RED CELL DISTRIBUTION WIDTH 20.6 % (11.6-14.6)
[2020-06-22 12:05] LABS: CHLORIDE 106 mEq/L (98-107)
[2020-06-22] MEDS ORDERED: SULF1TAB48 MT (15:37)
[2020-06-22 16:00] VITALS: BP 105/63
[2020-06-22] MEDS: ATORVASTATIN CALCIUM 20MG TABLET PO SCH ×2 (21:00→21:09)
[2020-06-22] MEDS: ENOXAPARIN 40MG/0.4ML SYR SUBCUT SCH (21:10)
[2020-06-23] MEDS ORDERED: MORPHINE SULFATE 2 MG/ML CPJ (NOT FOR IM USE) IV PRN (01:15)
[2020-06-23 01:19] VITALS: BP 110/74
[2020-06-23] MEDS: DIPHENHYDRAMINE 50MG/ML VIAL IV PRN ×4 (03:21→21:19)
[2020-06-23] MEDS: MEROPENEM 1,000 MG in SODIUM CHLORIDE 0.9% 100 ML IV SCH ×3 (05:30→21:18)
[2020-06-23] MEDS: MAGNESIUM GLUCONATE 500MG TABLET PO SCH (08:30)
[2020-06-23] MEDS: ASPIRIN 81MG TABLET PO SCH (08:30)
[2020-06-23] MEDS ORDERED: HYDROCODONE/ACETAMINOPHEN 5/325MG TABLET PO PRN (10:30)
[2020-06-23] MEDS: MORPHINE SULFATE 2 MG/ML CPJ (NOT FOR IM USE) IV PRN ×4 (10:45→23:58)
[2020-06-23 16:00] VITALS: BP 109/68
[2020-06-23 20:00] VITALS: BP 108/73
[2020-06-23] MEDS: ATORVASTATIN CALCIUM 20MG TABLET PO SCH ×2 (21:00→21:18)
[2020-06-23] MEDS: ENOXAPARIN 40MG/0.4ML SYR SUBCUT SCH (21:19)
[2020-06-24] VITALS: BP 111/69
[2020-06-24 04:00] VITALS: BP 102/72
[2020-06-24] MEDS: MORPHINE SULFATE 2 MG/ML CPJ (NOT FOR IM USE) IV PRN ×5 (04:19→21:58)
[2020-06-24] MEDS: DIPHENHYDRAMINE 50MG/ML VIAL IV PRN ×5 (04:55→23:49)
[2020-06-24] MEDS: MEROPENEM 1,000 MG in SODIUM CHLORIDE 0.9% 100 ML IV SCH ×3 (05:05→21:50)
[2020-06-24 08:58] VITALS: BP 108/66
[2020-06-24] MEDS: MAGNESIUM GLUCONATE 500MG TABLET PO SCH (09:04)
[2020-06-24] MEDS: ASPIRIN 81MG TABLET PO SCH (09:04)
[2020-06-24 11:54] VITALS: BP 100/63
[2020-06-24 20:00] VITALS: BP 105/65
[2020-06-24] MEDS: ENOXAPARIN 40MG/0.4ML SYR SUBCUT SCH (20:00)
[2020-06-24] MEDS: ATORVASTATIN CALCIUM 20MG TABLET PO SCH (20:00)
[2020-06-25] VITALS: BP 118/76
[2020-06-25] MEDS: MORPHINE SULFATE 2 MG/ML CPJ (NOT FOR IM USE) IV PRN ×3 (01:56→10:28)
[2020-06-25] MEDS: DIPHENHYDRAMINE 50MG/ML VIAL IV PRN ×3 (03:50→22:06)
[2020-06-25] MEDS: MEROPENEM 1,000 MG in SODIUM CHLORIDE 0.9% 100 ML IV SCH (05:12)
[2020-06-25 07:56] VITALS: BP 103/66
[2020-06-25] MEDS: MAGNESIUM GLUCONATE 500MG TABLET PO SCH ×3 (08:25→10:38)
[2020-06-25] MEDS: ASPIRIN 81MG TABLET PO SCH ×3 (08:25→10:37)
[2020-06-25] MEDS ORDERED: NALOXONE HCL 0.4 MG/ML 1ML VIAL IV PRN (11:00)
[2020-06-25] MEDS: METHADONE HCL 10MG TABLET PO SCH ×4 (13:00→20:51)
[2020-06-25 14:05] VITALS: BP 105/64
[2020-06-25 17:50] VITALS: BP 114/69
[2020-06-25 17:55] VITALS: BP 114/69
[2020-06-25] MEDS: SULFAMETHOXAZOLE/TRIMETHOPRIM 800/160MG TABLET PO SCH (20:51)
[2020-06-25] MEDS: ENOXAPARIN 40MG/0.4ML SYR SUBCUT SCH (20:51)
[2020-06-25] MEDS: ATORVASTATIN CALCIUM 20MG TABLET PO SCH (20:58)
[2020-06-26] MEDS: DIPHENHYDRAMINE 50MG/ML VIAL IV PRN ×4 (02:55→16:26)
[2020-06-26 04:00] VITALS: BP 109/70
[2020-06-26] MEDS: METHADONE HCL 10MG TABLET PO SCH ×3 (09:08→16:26)
[2020-06-26] MEDS: SULFAMETHOXAZOLE/TRIMETHOPRIM 800/160MG TABLET PO SCH (09:08)
[2020-06-26] MEDS: ASPIRIN 81MG TABLET PO SCH (09:09)
[2020-06-26] MEDS: MAGNESIUM GLUCONATE 500MG TABLET PO SCH (09:09)
[2020-06-26 12:00] VITALS: BP 97/68
[2020-06-26 16:26] VITALS: BP 109/70
== END 2020-06-26 19:30 | disposition home or self-care (01) | DRG 720 ==
LOC: ER 12:45 → 6WST 16:30 → ENRESERV 19:29 → 6EST 06-26 05:30
PROVIDERS: ADMIT Internal Medicine; ATTEND Internal Medicine
PROC: 02HV33Z Insertion of Infusion Device into Superior Vena Cava, Percutaneous Approach (ICD-10-PCS; principal; 2020-06-17)
PROC: B5181ZA Fluoroscopy of Superior Vena Cava using Low Osmolar Contrast, Guidance (ICD-10-PCS; 2020-06-17)
PROC: B548ZZA Ultrasonography of Superior Vena Cava, Guidance (ICD-10-PCS; 2020-06-17)
DX: A41.50 Gram-negative sepsis, unspecified (principal); N39.0 Urinary tract infection, site not specified; F14.10 Cocaine abuse, uncomplicated; D50.9 Iron deficiency anemia, unspecified; E78.5 Hyperlipidemia, unspecified; I10 Essential (primary) hypertension; F17.210 Nicotine dependence, cigarettes, uncomplicated; B95.62 Methicillin resistant Staphylococcus aureus infection as the cause of diseases classified elsewhere; E83.42 Hypomagnesemia; F11.20 Opioid dependence, uncomplicated; F10.10 Alcohol abuse, uncomplicated; F41.9 Anxiety disorder, unspecified; I20.9 Angina pectoris, unspecified; G89.4 Chronic pain syndrome; M16.0 Bilateral primary osteoarthritis of hip; Z96.643 Presence of artificial hip joint, bilateral; F15.90 Other stimulant use, unspecified, uncomplicated; M94.0 Chondrocostal junction syndrome [Tietze]; Z59.0 Homelessness; Z86.14 Personal history of Methicillin resistant Staphylococcus aureus infection; E43 Unspecified severe protein-calorie malnutrition
CPT/HCPCS: 36415; 71045; 71275; 76937; 77001; 80048; 80053; 80061; 80305; 81003; 82728; 83540; 83550; 83735; 83880; 84100; 84443; 84484; 85025; 85379; 87077; 87186; 93005; 93306; 93970; 96374; 97110; 97116; 97162; 97166; 97530; 97535; 99285; J0692; J0696; J1200; J1650; J2185; J2270; J2405; J3490; J7030; J7050; J7060

== ENCOUNTER 2020-07-07 21:49 | Emergency (ER) | payer MEDICAID ==
[~2020-07-07] VITALS: Ht 172.7 cm; Wt 81.0 kg
[~2020-07-07 21:49] MED LIST changes: -DOXY150T5 MT; +SULF1TAB48 MT
[2020-07-07] MEDS ORDERED: HYDROCODONE/ACETAMINOPHEN 5/325MG TABLET PO ONE (22:45)
[2020-07-07] MEDS ORDERED: METHOCARBAMOL 500MG TABLET PO ONE (22:45)
[2020-07-07 23:52] LABS: EOSINOPHILS % 7.9 % (0.0-5.0); HEMATOCRIT. 30.6 % (42.0-52.0); HEMOGLOBIN. 9.7 g/dL (14.0-18.0); LYMPHOCYTES % 25.6 % (20.0-50.0); MEAN CORPUSCULAR HEMOGLOBIN 23.5 pg (28.0-32.0); MEAN PLATELET VOLUME 8.3 fl (7.4-10.4); MONOCYTES % 10.2 % (2.0-8.0); NEUTROPHILS % 55.3 % (40.0-76.0); PLATELET 235 x1000/uL (130-400); RED BLOOD CELL COUNT 4.14 mill/uL (4.7-6.1); RED CELL DISTRIBUTION WIDTH 20.9 % (11.6-14.6)
[2020-07-07 23:57] LABS: CHLORIDE 111 mEq/L (98-107)
[2020-07-08 00:40] VITALS: BP 122/56
== END 2020-07-08 02:17 | disposition home or self-care (01) ==
LOC: ER 21:49
DX: R07.89 Other chest pain (principal); R00.0 Tachycardia, unspecified; D64.9 Anemia, unspecified; D72.819 Decreased white blood cell count, unspecified; F14.10 Cocaine abuse, uncomplicated
CPT/HCPCS: 36415; 71045; 80053; 84484; 85025; 99284

== ENCOUNTER 2020-07-08 04:34 | Emergency (ER) | payer MEDICAID ==
[~2020-07-08] VITALS: Ht 188 cm; Wt 75.0 kg
[2020-07-08 04:36] VITALS: BP 139/57
[2020-07-08] MEDS ORDERED: NITROGLYCERIN 0.4MG TABLET SL SL ONE (06:30)
[2020-07-08] MEDS ORDERED: ACETAMINOPHEN 325MG TABLET PO ONE (09:15)
== END 2020-07-08 10:30 | disposition home or self-care (01) ==
LOC: ER 04:34
DX: R07.89 Other chest pain (principal); F17.290 Nicotine dependence, other tobacco product, uncomplicated; Z79.899 Other long term (current) drug therapy
CPT/HCPCS: 36415; 82550; 84484; 85379; 93005; 93970; 99285

== ENCOUNTER 2020-08-13 11:44 | Emergency (ER) | payer MEDICAID, OTHER ==
[~2020-08-13] VITALS: Ht 190.5 cm; Wt 77.0 kg
[2020-08-13] MEDS ORDERED: ACETAMINOPHEN 325MG TABLET PO STA (12:11)
[2020-08-13] MEDS ORDERED: PIPERACILLIN/TAZ 3.375G PREMIX 50 ML IV ONE (12:15)
[2020-08-13] MEDS ORDERED: VANCOMYCIN 1 G PREMIX 200 ML IV ONE (12:15)
[2020-08-13] MEDS ORDERED: SODIUM CHLORIDE 0.9% 1000ML BAG (SEPSIS BOLUS) IV ONE (12:15)
[2020-08-13 13:55] LABS: BASOPHILS % 0.3 % (0.0-2.0); EOSINOPHILS % 0.4 % (0.0-5.0); HEMATOCRIT. 34.1 % (42.0-52.0); HEMOGLOBIN. 10.7 g/dL (14.0-18.0); LYMPHOCYTES % 10.6 % (20.0-50.0); MEAN CORPUSCULAR HEMOGLOBIN 23.9 pg (28.0-32.0); MEAN PLATELET VOLUME 9.8 fl (7.4-10.4); MONOCYTES % 6.2 % (2.0-8.0); NEUTROPHILS % 82.5 % (40.0-76.0); PLATELET 212 x1000/uL (130-400); RED BLOOD CELL COUNT 4.48 mill/uL (4.7-6.1); RED CELL DISTRIBUTION WIDTH 18.8 % (11.6-14.6)
[2020-08-13 14:02] LABS: CHLORIDE 110 mEq/L (98-107)
[2020-08-13 14:09] LABS: ETHANOL BLOOD < 10 mg/dL
[2020-08-13 14:14] LABS: INR 1.1; PROTHROMBIN TIME 11.6 sec (9.6-11.0)
[2020-08-13 15:05] LABS: CLARITY URINE CLOUDY (CLEAR); COLOR URINE DK YELLOW (YELLOW); KETONES URINE 2+ (NEGATIVE); LEUKOCYTE ESTERASE URINE NEGATIVE (NEGATIVE); NITRITE URINE NEGATIVE (NEGATIVE); OCCULT BLOOD URINE NEGATIVE (NEGATIVE); PH URINE 5.5 (4.5-8.0); PROTEIN URINE 1+ (NEGATIVE); SPECIFIC GRAVITY URINE 1.019 (1.005-1.030); UROBILINOGEN URINE 0.2 E.U./dL (0.2-1.0)
[2020-08-13 15:23] LABS: *AMPHETAMINES SCREEN URINE PRESUMTIVE POSITIVE (NEGATIVE); *BARBITURATES SCREEN URINE NEGATIVE (NEGATIVE); *BENZODIAZEPINES SCREEN URINE NEGATIVE (NEGATIVE); *COCAINE SCREEN URINE NEGATIVE (NEGATIVE); CANNABINOID URINE SCREEN NEGATIVE (NEGATIVE); OPIATES URINE SCREEN PRESUMTIVE POSITIVE (NEGATIVE); PHENCYCLIDINE URINE SCREEN NEGATIVE (NEGATIVE)
[2020-08-13 15:24] LABS: METHADONE URINE SCREEN NEGATIVE (NEGATIVE)
[2020-08-13 19:46] VITALS: BP 130/86
== END 2020-08-13 20:20 | disposition left against medical advice (07) ==
LOC: ER 11:44 → EDBEDREQTM 15:37 → EDBEDREQSVC 15:37 → EDBEDREQ 15:37 → EDBEDREQTM 19:37 → EDBEDREQ 19:37 → CANRESERV 19:57 → ENRESERV 19:57 → ER 20:20 → CANBEDREQ 08-14 19:57
DX: A41.9 Sepsis, unspecified organism (principal); R65.20 Severe sepsis without septic shock; N39.0 Urinary tract infection, site not specified; F19.10 Other psychoactive substance abuse, uncomplicated; D50.9 Iron deficiency anemia, unspecified; N28.9 Disorder of kidney and ureter, unspecified; F17.200 Nicotine dependence, unspecified, uncomplicated; F14.10 Cocaine abuse, uncomplicated; Z79.899 Other long term (current) drug therapy; Z88.1 Allergy status to other antibiotic agents; Z96.649 Presence of unspecified artificial hip joint
CPT/HCPCS: 36415; 71045; 80053; 80305; 80320; 81003; 83605; 84145; 84484; 85025; 85610; 87040; 87086; 93005; 96360; 96361; 99285; J2543; J3370; J7030; G0480

== ENCOUNTER 2020-09-20 22:57 | Inpatient (IN) | payer MEDICAID, OTHER ==
[~2020-09-20] VITALS: Ht 190.5 cm; Wt 70.8 kg
[2020-09-20] MEDS ORDERED: ONDANSETRON HCL 4MG/2ML INJ IV STA (23:51)
[2020-09-20] MEDS ORDERED: MORPHINE SULFATE 4 MG/ML CPJ (NOT FOR IM USE) IV STA (23:51)
[2020-09-21] MEDS ORDERED: SODIUM CHLORIDE 0.9% 1000ML BAG (SEPSIS BOLUS) IV ONE
[2020-09-21 00:59] LABS: BASOPHILS % 0.9 % (0.0-2.0); EOSINOPHILS % 0.5 % (0.0-5.0); HEMATOCRIT. 36.4 % (42.0-52.0); HEMOGLOBIN. 11.3 g/dL (14.0-18.0); LYMPHOCYTES % 11.2 % (20.0-50.0); MEAN CORPUSCULAR HEMOGLOBIN 24.4 pg (28.0-32.0); MEAN CORPUSCULAR VOLUME 78.6 fL (80.0-94.0); MEAN PLATELET VOLUME 8.4 fl (7.4-10.4); MONOCYTES % 12.2 % (2.0-8.0); NEUTROPHILS % 75.2 % (40.0-76.0); PLATELET 268 x1000/uL (130-400); RED BLOOD CELL COUNT 4.63 mill/uL (4.7-6.1); RED CELL DISTRIBUTION WIDTH 18.8 % (11.6-14.6)
[2020-09-21 01:04] LABS: CLARITY URINE CLEAR (CLEAR); COLOR URINE YELLOW (YELLOW); KETONES URINE NEGATIVE (NEGATIVE); LEUKOCYTE ESTERASE URINE NEGATIVE (NEGATIVE); NITRITE URINE NEGATIVE (NEGATIVE); OCCULT BLOOD URINE NEGATIVE (NEGATIVE); PROTEIN URINE TRACE (NEGATIVE); SPECIFIC GRAVITY URINE 1.018 (1.005-1.030); UROBILINOGEN URINE 0.2 E.U./dL (0.2-1.0)
[2020-09-21 01:04] LABS: CHLORIDE 102 mEq/L (98-107)
[2020-09-21 01:09] LABS: PARTIAL THROMBOPLASTIN TIME 30.1 sec (23.4-31.0); PROTHROMBIN TIME 10.9 sec (9.6-11.0)
[2020-09-21] MEDS ORDERED: PIPERACILLIN/TAZ 3.375G PREMIX 50 ML IV ONE (01:30)
[2020-09-21] MEDS ORDERED: DIPHENHYDRAMINE 50MG CAPSULE PO ONE (05:30)
[2020-09-21 09:15] VITALS: BP 99/55
[2020-09-21] MEDS ORDERED: HYDROCODONE/ACETAMINOPHEN 10/325MG TABLET PO PRN (09:15)
[2020-09-21] MEDS ORDERED: ONDANSETRON HCL 4MG/2ML INJ IV PRN (09:15)
[2020-09-21 09:30] VITALS: BP 99/55
[2020-09-21] MEDS: ENOXAPARIN 40MG/0.4ML SYR SUBCUT SCH (09:38)
[2020-09-21] MEDS ORDERED: DOXY150T5 MT (11:19)
[2020-09-21 12:00] VITALS: BP 99/58
[2020-09-21] MEDS: HYDROMORPHONE HCL 2MG TABLET PO PRN ×2 (15:06→21:47)
[2020-09-21 16:00] VITALS: BP 94/43
[2020-09-21] MEDS ORDERED: DIPHENHYDRAMINE 50MG/ML VIAL IM PRN (19:30)
[2020-09-21] MEDS ORDERED: LINEZOLID 600 MG PREMIX 300 ML IV SCH (19:30)
[2020-09-21] MEDS: DIPHENHYDRAMINE 25MG CAPSULE PO PRN (20:12)
[2020-09-21] MEDS ORDERED: LINEZOLID 600MG TABLET PO SCH (21:00)
[2020-09-21] MEDS ORDERED: LEVOFLOXACIN 500MG TABLET PO SCH (21:00)
[2020-09-21] MEDS: LINEZOLID 600MG TABLET PO SCH (21:42)
[2020-09-21] MEDS ORDERED: PIPERACILLIN/TAZOBACTAM 3.375 G/VIAL IV SCH (22:00)
[2020-09-22] MEDS: HYDROMORPHONE HCL 2MG TABLET PO PRN (04:55)
[2020-09-22] MEDS ORDERED: LIDOCAINE HCL 1% 20ML VIAL (Pyxis) INJ ONE (08:30)
[2020-09-22] MEDS: LINEZOLID 600MG TABLET PO SCH ×2 (08:54→21:00)
[2020-09-22] MEDS: ENOXAPARIN 40MG/0.4ML SYR SUBCUT SCH (11:43)
[2020-09-22] MEDS: HYDROMORPHONE HCL/PF 2MG/ML CPJ IV PRN ×2 (11:43→18:04)
[2020-09-22 12:00] VITALS: BP 115/57
[2020-09-22] MEDS: ACETAMINOPHEN 325MG TABLET PO PRN (14:24)
[2020-09-22] MEDS: PIPERACILLIN/TAZOBACTAM 3.375 G in DEXT 5% WATER 100 ML IV SCH ×2 (14:25→22:00)
[2020-09-22] MEDS ORDERED: DIPHENHYDRAMINE 50MG/ML VIAL IV NR (14:30)
[2020-09-22 16:00] VITALS: BP_SYST 97; BP_DIAS 51; BP_DIAS 57
[2020-09-23] VITALS: BP 117/66
[2020-09-23] MEDS: HYDROMORPHONE HCL/PF 2MG/ML CPJ IV PRN ×4 (00:23→20:05)
[2020-09-23] MEDS: DIPHENHYDRAMINE 25MG CAPSULE PO PRN ×2 (01:44→17:25)
[2020-09-23] MEDS: PIPERACILLIN/TAZOBACTAM 3.375 G in DEXT 5% WATER 100 ML IV SCH ×3 (06:40→22:00)
[2020-09-23] MEDS: LINEZOLID 600MG TABLET PO SCH ×2 (09:00→20:05)
[2020-09-23 12:00] VITALS: BP 115/65
[2020-09-23] MEDS: ENOXAPARIN 40MG/0.4ML SYR SUBCUT SCH (13:16)
[2020-09-23 16:00] VITALS: BP 127/66
[2020-09-23 20:00] VITALS: BP 142/73
[2020-09-24] VITALS: BP 135/70
[2020-09-24] MEDS: HYDROMORPHONE HCL/PF 2MG/ML CPJ IV PRN ×4 (02:26→21:17)
[2020-09-24 04:00] VITALS: BP 140/75
[2020-09-24] MEDS: PIPERACILLIN/TAZOBACTAM 3.375 G in DEXT 5% WATER 100 ML IV SCH ×3 (06:00→21:16)
[2020-09-24 08:00] VITALS: BP 130/76
[2020-09-24] MEDS: ENOXAPARIN 40MG/0.4ML SYR SUBCUT SCH (08:58)
[2020-09-24] MEDS: LINEZOLID 600MG TABLET PO SCH ×2 (08:58→20:22)
[2020-09-24 12:00] VITALS: BP 130/72
[2020-09-24] MEDS: ACETAMINOPHEN 325MG TABLET PO PRN (20:14)
[2020-09-24] MEDS: DIPHENHYDRAMINE 25MG CAPSULE PO PRN ×2 (20:14→22:51)
[2020-09-25 03:00] VITALS: BP 138/85
[2020-09-25] MEDS: HYDROMORPHONE HCL/PF 2MG/ML CPJ IV PRN ×4 (03:15→20:13)
[2020-09-25] MEDS: PIPERACILLIN/TAZOBACTAM 3.375 G in DEXT 5% WATER 100 ML IV SCH ×2 (06:00→13:20)
[2020-09-25] MEDS: LINEZOLID 600MG TABLET PO SCH ×3 (09:00→20:10)
[2020-09-25] MEDS: ENOXAPARIN 40MG/0.4ML SYR SUBCUT SCH (09:48)
[2020-09-25] MEDS ORDERED: HYDROMORPHONE HCL/PF 2MG/ML CPJ IV NR (13:00)
[2020-09-25] MEDS: CEFEPIME 1,000 MG in DEXTROSE 5% WATER 50 ML IV SCH (16:00)
[2020-09-25] MEDS: DIPHENHYDRAMINE 25MG CAPSULE PO PRN (19:02)
[2020-09-25 20:00] VITALS: BP 125/73
[2020-09-25] MEDS: ACETAMINOPHEN 325MG TABLET PO PRN (22:14)
[2020-09-26] VITALS: BP 108/68
[2020-09-26] MEDS: HYDROMORPHONE HCL/PF 2MG/ML CPJ IV PRN ×5 (00:31→22:10)
[2020-09-26] MEDS: DIPHENHYDRAMINE 25MG CAPSULE PO PRN ×3 (03:56→20:06)
[2020-09-26] MEDS: CEFEPIME 1,000 MG in DEXTROSE 5% WATER 50 ML IV SCH ×2 (03:56→15:14)
[2020-09-26 04:00] VITALS: BP 133/78
[2020-09-26 08:00] VITALS: BP 123/79
[2020-09-26] MEDS: LINEZOLID 600MG TABLET PO SCH ×2 (08:49→20:06)
[2020-09-26] MEDS: ENOXAPARIN 40MG/0.4ML SYR SUBCUT SCH (08:49)
[2020-09-26 12:00] VITALS: BP 133/77
[2020-09-26] MEDS ORDERED: HYDROMORPHONE HCL/PF 2MG/ML CPJ IV PRN (15:45)
[2020-09-26 16:00] VITALS: BP 105/66
[2020-09-27] MEDS: ACETAMINOPHEN 325MG TABLET PO PRN ×2 (01:10→15:38)
[2020-09-27] MEDS: HYDROMORPHONE HCL/PF 2MG/ML CPJ IV PRN ×4 (02:11→14:22)
[2020-09-27 04:00] VITALS: BP 117/76
[2020-09-27] MEDS: CEFEPIME 1,000 MG in DEXTROSE 5% WATER 50 ML IV SCH ×2 (04:56→16:57)
[2020-09-27 08:00] VITALS: BP 110/60
[2020-09-27] MEDS: ENOXAPARIN 40MG/0.4ML SYR SUBCUT SCH (08:42)
[2020-09-27] MEDS: LINEZOLID 600MG TABLET PO SCH ×2 (08:42→20:05)
[2020-09-27 12:00] VITALS: BP 106/64
[2020-09-27] MEDS: DIPHENHYDRAMINE 25MG CAPSULE PO PRN (17:00)
[2020-09-27] MEDS: HYDROMORPHONE HCL 2MG TABLET PO PRN (18:56)
[2020-09-28] MEDS: HYDROMORPHONE HCL 2MG TABLET PO PRN ×4 (01:31→19:43)
[2020-09-28] MEDS: DIPHENHYDRAMINE 25MG CAPSULE PO PRN ×2 (03:03→16:45)
[2020-09-28] MEDS: CEFEPIME 1,000 MG in DEXTROSE 5% WATER 50 ML IV SCH (04:00)
[2020-09-28] MEDS: ACETAMINOPHEN 325MG TABLET PO PRN (05:51)
[2020-09-28 08:00] VITALS: BP 112/76
[2020-09-28] MEDS: ENOXAPARIN 40MG/0.4ML SYR SUBCUT SCH (08:29)
[2020-09-28] MEDS: LINEZOLID 600MG TABLET PO SCH ×2 (08:29→21:00)
[2020-09-28 12:00] VITALS: BP 118/68
[2020-09-28] MEDS: LEVOFLOXACIN 250MG TABLET PO SCH (14:30)
[2020-09-28 15:21] LABS: BASOPHILS % 0.5 % (0.0-2.0); HEMATOCRIT. 35.3 % (42.0-52.0); LYMPHOCYTES % 15.3 % (20.0-50.0); MEAN CORPUSCULAR HEMOGLOBIN 24.2 pg (28.0-32.0); MEAN CORPUSCULAR VOLUME 77.4 fL (80.0-94.0); MEAN PLATELET VOLUME 8.7 fl (7.4-10.4); MONOCYTES % 13.2 % (2.0-8.0); PLATELET 209 x1000/uL (130-400); RED BLOOD CELL COUNT 4.55 mill/uL (4.7-6.1); RED CELL DISTRIBUTION WIDTH 18.8 % (11.6-14.6)
[2020-09-28 15:27] LABS: CHLORIDE 106 mEq/L (98-107)
[2020-09-28 17:18] VITALS: BP 118/68
[2020-09-28 20:00] VITALS: BP 130/76
[2020-09-29] VITALS: BP 125/70
[2020-09-29] MEDS: HYDROMORPHONE HCL 2MG TABLET PO PRN ×4 (02:09→20:25)
[2020-09-29] MEDS: DIPHENHYDRAMINE 25MG CAPSULE PO PRN ×2 (03:56→23:33)
[2020-09-29 04:00] VITALS: BP 135/80
[2020-09-29 08:00] VITALS: BP 136/76
[2020-09-29] MEDS: ENOXAPARIN 40MG/0.4ML SYR SUBCUT SCH (08:13)
[2020-09-29] MEDS: LINEZOLID 600MG TABLET PO SCH ×2 (08:13→21:00)
[2020-09-29] MEDS: LEVOFLOXACIN 250MG TABLET PO SCH (08:13)
[2020-09-29 14:00] VITALS: BP 126/69
[2020-09-29 20:00] VITALS: BP 115/68
[2020-09-30] VITALS: BP 133/73
[2020-09-30] MEDS: HYDROMORPHONE HCL 2MG TABLET PO PRN ×4 (02:27→20:28)
[2020-09-30] MEDS: ACETAMINOPHEN 325MG TABLET PO PRN ×2 (02:29→22:47)
[2020-09-30 08:00] VITALS: BP 131/68
[2020-09-30] MEDS: LEVOFLOXACIN 250MG TABLET PO SCH (08:30)
[2020-09-30] MEDS: LINEZOLID 600MG TABLET PO SCH ×2 (08:30→22:36)
[2020-09-30] MEDS: ENOXAPARIN 40MG/0.4ML SYR SUBCUT SCH (08:34)
[2020-09-30] MEDS: DIPHENHYDRAMINE 25MG CAPSULE PO PRN ×2 (15:24→22:47)
[2020-09-30 16:00] VITALS: BP 115/65
[2020-10-01] MEDS: HYDROMORPHONE HCL 2MG TABLET PO PRN ×4 (02:28→21:43)
[2020-10-01] MEDS: ACETAMINOPHEN 325MG TABLET PO PRN ×2 (03:58→23:17)
[2020-10-01] MEDS: LEVOFLOXACIN 250MG TABLET PO SCH (08:21)
[2020-10-01] MEDS: ENOXAPARIN 40MG/0.4ML SYR SUBCUT SCH (08:23)
[2020-10-01] MEDS: DIPHENHYDRAMINE 25MG CAPSULE PO PRN ×2 (09:45→23:17)
[2020-10-01 20:00] VITALS: BP 115/67
[2020-10-01] MEDS: LINEZOLID 600MG TABLET PO SCH (23:12)
[2020-10-02] MEDS: HYDROMORPHONE HCL 2MG TABLET PO PRN ×3 (03:44→17:45)
[2020-10-02] MEDS: DIPHENHYDRAMINE 25MG CAPSULE PO PRN (03:50)
[2020-10-02 08:00] VITALS: BP 105/51
[2020-10-02] MEDS: ENOXAPARIN 40MG/0.4ML SYR SUBCUT SCH (09:51)
[2020-10-02] MEDS: LINEZOLID 600MG TABLET PO SCH ×2 (10:01→20:43)
[2020-10-02] MEDS ORDERED: LEVOFLOXACIN 250MG TABLET PO SCH (14:00)
[2020-10-02] MEDS ORDERED: LEVO750T46 MT (18:09)
[2020-10-02] MEDS ORDERED: LINE600T14 MT (18:09)
[2020-10-02 20:00] VITALS: BP 100/70
[2020-10-03] VITALS: BP 108/64
[2020-10-03] MEDS ORDERED: HYDROMORPHONE HCL 4MG TABLET PO PRN
[2020-10-03] MEDS: HYDROMORPHONE HCL 2MG TABLET PO PRN ×2 (06:06)
[2020-10-03 08:00] VITALS: BP 120/81
[2020-10-03] MEDS: ENOXAPARIN 40MG/0.4ML SYR SUBCUT SCH (09:04)
[2020-10-03] MEDS: LINEZOLID 600MG TABLET PO SCH (09:04)
[2020-10-03] MEDS ORDERED: HYDR2TAB4 MT ×2 (09:20→09:21)
[2020-10-03 09:49] VITALS: BP 120/81
== END 2020-10-03 10:00 | disposition home or self-care (01) | DRG 349 ==
LOC: ER 22:57 → ENRESERV 09-21 08:10 → 6EST 09-21 09:05
PROVIDERS: ADMIT Internal Medicine; ATTEND Internal Medicine
PROC: 02HV33Z Insertion of Infusion Device into Superior Vena Cava, Percutaneous Approach (ICD-10-PCS; principal; 2020-09-22)
PROC: B548ZZA Ultrasonography of Superior Vena Cava, Guidance (ICD-10-PCS; 2020-09-22)
PROC: B5181ZA Fluoroscopy of Superior Vena Cava using Low Osmolar Contrast, Guidance (ICD-10-PCS; 2020-09-22)
DX: T84.51XA Infection and inflammatory reaction due to internal right hip prosthesis, initial encounter (principal); L03.115 Cellulitis of right lower limb; D64.9 Anemia, unspecified; E87.2 Acidosis; Z96.643 Presence of artificial hip joint, bilateral; E87.1 Hypo-osmolality and hyponatremia; E44.1 Mild protein-calorie malnutrition; Y83.8 Other surgical procedures as the cause of abnormal reaction of the patient, or of later complication, without mention of misadventure at the time of the procedure; F15.90 Other stimulant use, unspecified, uncomplicated; Z88.8 Allergy status to other drugs, medicaments and biological substances; Z79.899 Other long term (current) drug therapy; Z88.1 Allergy status to other antibiotic agents; Z88.5 Allergy status to narcotic agent; Z68.1 Body mass index [BMI] 19.9 or less, adult; Z71.51 Drug abuse counseling and surveillance of drug abuser; Y92.89 Other specified places as the place of occurrence of the external cause
CPT/HCPCS: 36415; 36573; 71045; 73521; 80053; 81003; 83605; 83880; 84145; 84484; 85025; 85651; 86140; 93005; 93970; 97162; 99291; C1725; C1893; J0692; J1170; J1200; J1650; J2270; J2405; J2543; J3490; J7030; J7040; J7060; Q0163